=== PATIENT | female | born 1970 | race Hispanic/Latino ===

== ENCOUNTER 2024-06-15 12:10 | Emergency (ER) | payer SELFPAY ==
[~2024-06-15] VITALS: Ht 160 cm; Wt 78.0 kg
[2024-06-15] MEDS ORDERED: BACTRIM DS TAB1 EACH PO (13:13)
[2024-06-15 13:38] VITALS: PULSE 53; RESP 16; TEMP 98.2; O2SAT 97
== END 2024-06-15 13:38 | disposition home or self-care (01) ==
LOC: FSED 12:30
DX: L02.01 Cutaneous abscess of face (principal)
CPT/HCPCS: 10060; 99283